=== PATIENT | female | born 1975 | race American Indian/Alaskan Native ===

== ENCOUNTER 2018-12-21 14:41 | Emergency (ER) | payer BC ==
--- NOTE | 2018-12-21 15:04 | Event Note ---
ED Screening Note ED Screening Note: pt presents with CP that began today describes it as pressure states it hurts to take a deep breath no N/V PMHx fibroids allergies: none This initial assessment/diagnostic orders/clinical plan/treatment(s) is/are subject to change based on patients health status, clinical progression and re-assessment by fellow clinical providers in the ED. Further treatment and workup at subsequent clinical providers discretion. Patient/guardian urged not to elope from the ED as their condition may be serious if not clinically assessed and managed. Initial orders include: CP protocol
[2018-12-21 15:15] LABS: Basophils # (Auto) 0.1 K/mm3 (0.0-0.1); Basophils % (Auto) 0.9 % (0.0-1.8); Eosinophils # (Auto) 0.2 K/mm3 (0.0-0.4); Eosinophils % (Auto) 2.5 % (0.0-4.3); Hematocrit 38.4 % (30.3-42.9); Hemoglobin 12.8 gm/dl (10.1-14.3); Lymphocytes # (Auto) 2.9 K/mm3 (1.2-5.4); Lymphocytes % (Auto) 46.1 % (13.4-35.0); Mean Corpuscular HGB Conc 33 % (30-34); Mean Corpuscular Volume 85 fl (79-97); Monocytes # (Auto) 0.4 K/mm3 (0.0-0.8); Monocytes % (Auto) 6.4 % (0.0-7.3); Platelet Count 176 K/mm3 (140-440); Red Cell Distribution Width 13.6 % (13.2-15.2)
--- NOTE | 2018-12-21 15:37 | XRay Report ---
CHEST 2 VIEWS INDICATION / CLINICAL INFORMATION: Chest pain. COMPARISON: None available. FINDINGS: SUPPORT DEVICES: None. HEART / MEDIASTINUM: No significant abnormality. LUNGS / PLEURA: No significant pulmonary or pleural abnormality. No pneumothorax. ADDITIONAL FINDINGS: No significant additional findings. IMPRESSION: 1. No acute findings. Signer Name: Eliceo Milligan MD Signed: 12/21/2018 3:33 PM Workstation Name: [id number]
[2018-12-21 15:40] LABS: Alanine Aminotransferase 12 units/L (7-56); Albumin 4.1 g/dL (3.9-5); BUN/Creatinine Ratio 16; Blood Urea Nitrogen 13 mg/dL (7-17); Calcium 9.3 mg/dL (8.4-10.2); Hemolysis Index 4
--- NOTE | 2018-12-21 16:37 | Emergency Department Report ---
ED General Adult HPI - General Chief complaint: Chest Pain Stated complaint: CHEST PAIN Time Seen by Provider: 12/21/18 15:02 Source: patient Mode of arrival: Ambulatory Limitations: No Limitations - History of Present Illness Initial comments: his is a 43-year-old female presents to the ED complaining of pain sternal chest pain that started around 11 AM today. Patient states she is also having pain with deep inspiration. 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 Patient describes pain as a pressure type feeling localized to her mid chest area. She denies coughing, fever, shortness of breath, dizziness headache or any other symptoms. - Related Data Previous Rx's Medication Instructions Recorded Last Taken Type Cyclobenzaprine [Flexeril] 10 mg PO QHS PRN #15 tablet 12/21/18 Unknown Rx Naproxen [Naprosyn] 500 mg PO BID #30 tablet 12/21/18 Unknown Rx Allergies Allergy/AdvReac Type Severity Reaction Status Date / Time No Known Allergies Allergy Unverified 12/21/18 18:25 ED Review of Systems ROS: Stated complaint: CHEST PAIN Other details as noted in HPI Comment: All other systems reviewed and negative ED Past Medical Hx - Past Medical History Previous Medical History?: Yes Hx Hypertension: No Hx CVA: No Hx Heart Attack/AMI: No Hx Congestive Heart Failure: No Hx Diabetes: No Hx Deep Vein Thrombosis: No Hx Pulmonary Embolism: No Hx GERD: No Hx Liver Disease: No Hx Renal Disease: No Hx of Cancer: No Hx Sickle Cell Disease: No Hx Arthritis: No Hx Headaches / Migraines: No Hx Seizures: No Hx Kidney Stones: No Hx Psychiatric Treatment: No Hx Asthma: No Hx COPD: No Hx Tuberculosis: No Hx Dementia: No Hx HIV: No - Surgical History Past Surgical History?: Yes Hx Coronary Stent: No Hx Open Heart Surgery: No Hx Pacemaker: No Hx Internal Defibrillator: No Hx Cholecystectomy: No Hx Appendectomy: No Hx Breast Surgery: No Additional Surgical History: fibroid removal - Social History Smoking Status: Never Smoker Substance Use Type: None - Medications Home Medications: Home Medications Medication Instructions Recorded Confirmed Last Taken Type Cyclobenzaprine [Flexeril] 10 mg PO QHS PRN #15 tablet 12/21/18 Unknown Rx Naproxen [Naprosyn] 500 mg PO BID #30 tablet 12/21/18 Unknown Rx ED Physical Exam - General Limitations: No Limitations General appearance: alert, in no apparent distress - Head Head exam: Present: atraumatic, normocephalic - Eye Eye exam: Present: normal appearance - ENT ENT exam: Present: mucous membranes moist - Neck Neck exam: Present: normal inspection - Respiratory Respiratory exam: Present: normal lung sounds bilaterally. Absent: respiratory distress - Cardiovascular Cardiovascular Exam: Present: regular rate, normal rhythm. Absent: systolic murmur, diastolic murmur, rubs, gallop - GI/Abdominal GI/Abdominal exam: Present: soft, normal bowel sounds - Extremities Exam Extremities exam: Present: normal inspection - Back Exam Back exam: Present: normal inspection - Neurological Exam Neurological exam: Present: alert, oriented X3 - Psychiatric Psychiatric exam: Present: normal affect, normal mood - Skin Skin exam: Present: warm, dry, intact, normal color. Absent: rash ED Course Vital Signs 12/21/18 12/21/18 15:03 18:17 Temperature 98.2 F 97.9 F Pulse Rate 84 63 Respiratory 16 16 Rate Blood Pressure 124/69 121/79 [Left] O2 Sat by Pulse 96 100 Oximetry ED Medical Decision Making - Lab Data Result diagrams: 12/21/18 15:07 12/21/18 15:07 Laboratory Last Values WBC 6.2 K/mm3 (4.5-11.0) 12/21/18 15:07 RBC 4.50 M/mm3 (3.65-5.03) 12/21/18 15:07 Hgb 12.8 gm/dl (10.1-14.3) 12/21/18 15:07 Hct 38.4 % (30.3-42.9) 12/21/18 15:07 MCV 85 fl (79-97) 12/21/18 15:07 MCH 28 pg (28-32) 12/21/18 15:07 MCHC 33 % (30-34) 12/21/18 15:07 RDW 13.6 % (13.2-15.2) 12/21/18 15:07 Plt Count 176 K/mm3 (140-440) 12/21/18 15:07 Lymph % (Auto) 46.1 % (13.4-35.0) H 12/21/18 15:07 Sunflower % (Auto) 6.4 % (0.0-7.3) 12/21/18 15:07 Eos % (Auto) 2.5 % (0.0-4.3) 12/21/18 15:07 Baso % (Auto) 0.9 % (0.0-1.8) 12/21/18 15:07 Lymph # 2.9 K/mm3 (1.2-5.4) 12/21/18 15:07 Sunflower # 0.4 K/mm3 (0.0-0.8) 12/21/18 15:07 Eos # 0.2 K/mm3 (0.0-0.4) 12/21/18 15:07 Baso # 0.1 K/mm3 (0.0-0.1) 12/21/18 15:07 Seg Neutrophils % 44.1 % (40.0-70.0) 12/21/18 15:07 Seg Neutrophils # 2.7 K/mm3 (1.8-7.7) 12/21/18 15:07 333.70 ng/mlDDU (0-234) H 12/21/18 15:07 Sodium 140 mmol/L (137-145) 12/21/18 15:07 Potassium 4.0 mmol/L (3.6-5.0) 12/21/18 15:07 Chloride 103.8 mmol/L (98-107) 12/21/18 15:07 Carbon Dioxide 25 mmol/L (22-30) 12/21/18 15:07 15 mmol/L 12/21/18 15:07 BUN 13 mg/dL (7-17) 12/21/18 15:07 0.8 mg/dL (0.7-1.2) 12/21/18 15:07 Estimated GFR > 60 ml/min 12/21/18 15:07 16 % 12/21/18 15:07 Glucose 62 mg/dL (65-100) L 12/21/18 15:07 Calcium 9.3 mg/dL (8.4-10.2) 12/21/18 15:07 0.20 mg/dL (0.1-1.2) 12/21/18 15:07 AST 18 units/L (5-40) 12/21/18 15:07 ALT 12 units/L (7-56) 12/21/18 15:07 57 units/L (35-129) 12/21/18 15:07 < 0.010 ng/mL (0.00-0.029) 12/21/18 15:07 7.3 g/dL (6.3-8.2) 12/21/18 15:07 4.1 g/dL (3.9-5) 12/21/18 15:07 1.3 % 12/21/18 15:07 HCG, Qual Negative (Negative) 12/21/18 15:07 - Radiology Data Radiology results: report reviewed, image reviewed CTA CHEST WITH IV CONTRAST INDICATION: elev d-dimer/ sob. TECHNIQUE: Axial CT images were obtained through the chest after injection of 100 mL of IV Omnipaque 350 IV contrast. 3 plane MIP reconstructions were produced. All CT scans at this location are performed using CT dose reduction for ALARA by means of automated exposure control. COMPARISON: None available. FINDINGS: Pulmonary Arteries: No pulmonary emboli. Lungs: No significant abnormality. Trachea and Bronchi: No significant abnormality. Heart and Pericardium: No significant abnormality. Vasculature: No significant abnormality. Lymphatics: No lymphadenopathy. Additional Findings: None. Upper Abdomen: No acute findings. Skeletal Structures: No significant osseous abnormality. IMPRESSION: 1. No CT evidence for pulmonary embolism. 2. No acute findings. Signer Name: Eliceo Milligan MD Signed: 12/21/2018 5:55 PM Workstation Name: [id number] Transcribed By: OWEN Dictated By: Eliceo Milligan MD Electronically Authenticated By: Eliceo Milligan MD Signed Date/Time: 12/21/18 7014 - Medical Decision Making Is 43-year-old female presents with chest pain most likely from costochondritis. All labs within normal limits d-dimer was mildly elevated so CTA was performed. EKG was normal sinus rhythm. CTA repeat or shows no acute findings no signs of PE. See report above. I discussed this with the patient. Patient received pain medication in the ED. Discuss to follow up with primary care physician. Critical care attestation.: If time is entered above; I have spent that time in minutes in the direct care of this critically ill patient, excluding procedure time. ED Disposition Clinical Impression: Chest pain, Acute costochondritis Disposition: DC- TO HOME OR SELFCARE Is pt being admited?: No Does the pt Need Aspirin: No Condition: Stable Instructions: Chest Pain (ED), Costochondritis (ED) Additional Instructions: Make sure to follow up with the primary care physician as discussed. Take all your medications as you've been prescribed. If you have any worsening symptoms or develop new symptoms please return to ED immediately. Prescriptions: Cyclobenzaprine [Flexeril] 10 mg PO QHS PRN #15 tablet PRN Reason: Muscle Spasm Naproxen [Naprosyn] 500 mg PO BID #30 tablet Referrals: [facility] [Outside] - 3-5 Days [facility] [Outside] - 3-5 Days [facility] [Outside] - 3-5 Days Forms: Accompanied Note, Work/School Release Form(ED) Time of Disposition: 18:32
--- NOTE | 2018-12-21 17:59 | Cat Scan Report ---
CTA CHEST WITH IV CONTRAST INDICATION: elev d-dimer/ sob. TECHNIQUE: Axial CT images were obtained through the chest after injection of 100 mL of IV Omnipaque 350 IV cont rast. 3 plane MIP reconstructions were produced. All CT scans at this location are performed using CT dose reduction for ALARA by means of automated exposure control. COMPARISON: None available. FINDINGS: Pulmonary Arteries: No pulmonary emboli. Lungs: No significant abnormality. Trachea and Bronchi: No significant abnormality. Heart and Pericardium: No significant abnormality. Vasculature: No significant abnormality. Lymphatics: No lymphadenopathy. Additional Findings: None. Upper Abdomen: No acute findings. Skeletal Structures: No significant osseous abnormality. IMPRESSION: 1. No CT evidence for pulmonary embolism. 2. No acute findings. Signer Name: Eliceo Milligan MD Signed: 12/21/2018 5:55 PM Workstation Name: [id number]
[2018-12-21] MEDS ORDERED: TORADOL IV ONE (18:25)
[2018-12-21 18:26] VITALS: BP 121/79
== END 2018-12-21 19:14 | disposition home or self-care (01) ==
LOC: ED 14:41
DX: M94.0 Chondrocostal junction syndrome [Tietze] (principal); Z98.890 Other specified postprocedural states; Z79.899 Other long term (current) drug therapy
CPT/HCPCS: 36415; 71046; 71275; 80053; 84484; 84703; 85025; 85379; 93005; 93010; 96374; 99284; J1885; Q9967